=== PATIENT | female | born 1965 | race African-American/Black ===

== ENCOUNTER 2017-09-05 16:17 | Inpatient (IN) | payer MEDICAID ==
[~2017-09-05] VITALS: Ht 160 cm; Wt 125.9 kg
[2017-09-05 16:31] VITALS: O2SAT 97
[2017-09-05 16:33] VITALS: PULSE 85; RESP 18; TEMP 98.2; O2SAT 97
[2017-09-05] MEDS ORDERED: KEPP10002 PO (16:40)
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
[2017-09-05 16:45] LABS: AUTOMATED NEUTROPHIL # 2.8 TH/MM3 (1.8-7.7); BASOPHIL % 0.3 % (0.0-2.0); EOSINOPHIL # 0.2 TH/MM3 (0-0.4); HEMATOCRIT 46.3 % (35.0-46.0); HEMOGLOBIN 15.2 GM/DL (11.6-15.3); LYMPH % 51.7 % (9.0-44.0); MEAN CELL VOLUME 92.2 FL (80.0-100.0); MEAN CORPUSCULAR HEMOGLOBIN 30.3 PG (27.0-34.0); MEAN CORPUSCULAR HGB CONC 32.9 % (32.0-36.0); MEAN PLATELET VOLUME 7.6 FL (7.0-11.0); MONO % 8.6 % (0.0-8.0); MONOCYTE # 0.7 TH/MM3 (0-0.9); NEUT % 36.4 % (16.0-70.0); PLATELET COUNT 265 TH/MM3 (150-450); RED BLOOD COUNT 5.02 MIL/MM3 (4.00-5.30); RED CELL DISTRIBUTION WIDTH 12.9 % (11.6-17.2); WHITE BLOOD COUNT 7.7 TH/MM3 (4.0-11.0)
[2017-09-05 17:02] LABS: ALBUMIN 4.1 GM/DL (3.4-5.0); ALT (GPT) 21 U/L (10-53); AST (GOT) 16 U/L (15-37); BICARBONATE 23.7 MEQ/L (21.0-32.0); BLOOD UREA NITROGEN 10 MG/DL (7-18); CALCIUM 8.7 MG/DL (8.5-10.1); CHLORIDE 105 MEQ/L (98-107); GLOMERULAR FILTRATION RATE 48 ML/MIN (>89); GLUCOSE,RANDOM 116 MG/DL (74-106); SODIUM (NA) 139 MEQ/L (136-145)
[2017-09-05 17:04] LABS: ALKALINE PHOSPHATASE 81 U/L (45-117); TOTAL BILIRUBIN ADULT 0.4 MG/DL (0.2-1.0); TOTAL PROTEIN 8.4 GM/DL (6.4-8.2)
--- NOTE | 2017-09-05 17:17 | RADRPT ---
EXAM DATE/TIME: 09/05/2017 16:50 [facility] COMPARISON: No previous studies available for comparison. INDICATIONS : Seizure. RADIATION DOSE: 66.34 CTDIvol (mGy) MEDICAL HISTORY : Seizures. SURGICAL HISTORY : None. ENCOUNTER: Initial ACUITY: 1 day PAIN SCALE: 0/10 LOCATION: cranial TECHNIQUE: Multiple contiguous axial images were obtained of the head. Using automated exposure control and adj ustment of the mA and/or kV according to patient size, radiation dose was kept as low as reasonably a chievable to obtain optimal diagnostic quality images. DICOM format image data is available electro nically for review and comparison. FINDINGS: CEREBRUM: Asymmetric atrophy and periventricular encephalomalacia changes in the right cerebral hemisphere invo lving the frontal, parietal and anterior temporal lobes. No evidence of midline shift, mass lesion, hemorrhage or acute infarction. No extra-axial fluid collections are seen. POSTERIOR FOSSA: The cerebellum and brainstem are intact. The 4th ventricle is midline. The cerebellopontine angle i s unremarkable. EXTRACRANIAL: The visualized portion of the orbits is intact. Small air-fluid level in the right maxillary antra. SKULL: The calvaria is intact. No evidence of skull fracture. CONCLUSION: 1. Asymmetric atrophic changes throughout the right frontal parietal and anterior temporal lobes. Per iventricular encephalomalacia changes predominately along the anterior body of the right lateral vent ricle. Findings are all chronic and could represent either prior trauma or vascular insult. 2. No acute intracranial process. 3. Mild sinusitis in the right maxillary antra with a small air-fluid level. Michael Patterson MD on September 05, 2017 at 17:07 Board Certified Radiologist. This report was verified electronically.
[2017-09-05] MEDS ORDERED: LORazepam 2 MG/ML VIAL ONE (17:31)
[2017-09-05] MEDS ORDERED: LORazepam 2 MG/ML VIAL IV PUSH ONE (17:45)
[2017-09-05] MEDS ORDERED: FOSPHENYTOIN SODIUM 500 MG PE/10 ML VIAL IM ONE (17:45)
[2017-09-05] MEDS ORDERED: FOSPHENYTOIN INJ 1,000 MGPE in SODIUM CHLORIDE 0.9% INJ 50 ML IV ONE (18:00)
[2017-09-05 18:11] VITALS: BP 165/90; PULSE 85; RESP 18; O2SAT 97
[2017-09-05 19:08] VITALS: BP 105/71; PULSE 71; RESP 18; O2SAT 100
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
[2017-09-05] MEDS ORDERED: RESP: ALBUTEROL 2.5 MG/IPRATROPIUM 0.5 MG NEB (PRN) INH (20:30)
[2017-09-05] MEDS ORDERED: BISACODYL 10 MG SUPP RECTAL PRN (20:30)
[2017-09-05] MEDS ORDERED: ACETAMINOPHEN 325 MG TAB PO PRN (20:30)
[2017-09-05] MEDS ORDERED: TEMAZEPAM 15 MG CAP PO PRN (20:30)
[2017-09-05] MEDS ORDERED: CHLORHEXIDINE GLUCONATE 2 % 1 PACK (2 CLOTHS) TOP PRN (20:30)
[2017-09-05] MEDS ORDERED: LACTULOSE SYRUP 20 GM/30 ML CUP PO PRN (20:30)
[2017-09-05] MEDS ORDERED: ONDANSETRON HCL 4 MG/2 ML VIAL IV PUSH PRN (20:30)
[2017-09-05] MEDS ORDERED: levETIRAcetam INJ 100 ML IV ONE (20:30)
[2017-09-05] MEDS ORDERED: SODIUM CHLORIDE 0.9% FLUSH 10 ML FLUSH IV FLUSH PRN (20:30)
[2017-09-05] MEDS ORDERED: MAGNESIUM HYDROXIDE SUSP 30 ML CUP PO PRN (20:30)
[2017-09-05] MEDS ORDERED: SENNOSIDES 8.6 MG TAB PO PRN (20:30)
[2017-09-05] MEDS ORDERED: MISCELLANEOUS NURSING INFORMATION XX SCH (20:30)
[2017-09-05] MEDS ORDERED: LORazepam 2 MG/ML VIAL IV PUSH PRN (20:30)
[2017-09-05] MEDS: DOCUSATE SODIUM 50 MG/SENNA 8.6 MG TAB PO SCH (21:00)
[2017-09-05] MEDS: levETIRAcetam 500 MG TAB PO SCH (21:16)
[2017-09-05] MEDS: SODIUM CHLORIDE 0.9% FLUSH 10 ML FLUSH IV FLUSH SCH (21:16)
[2017-09-05] MEDS: lamoTRIgine 100 MG TAB PO SCH (21:16)
[2017-09-05] MEDS: SODIUM CHLOR 0.9% 1000 ML INJ 1,000 ML IV SCH (21:36)
[2017-09-05 22:25] VITALS: BP 127/60; PULSE 68; RESP 18; TEMP 98; O2SAT 100
[2017-09-05] MEDS: CHLORHEXIDINE GLUCONATE 2 % 1 PACK (2 CLOTHS) TOP SCH (23:18)
--- NOTE | 2017-09-05 23:54 | EKG ---
Date Performed: 09/05/2017 Time Performed: 16:35:53 PTAGE: 51 years EKG: Sinus rhythm WITH OCCASIONAL VENTRICULAR PREMATURE COMPLEXES BORDERLINE ECG NO PREVIOUS TRACING DOCTOR: Dominic Rose Interpretating Date/Time 09/05/2017 23:52:37
[2017-09-06] VITALS (7 sets, daily range): BP systolic 103–130; BP diastolic 51–75; PULSE 61–76; RESP 16–18; TEMP 97.8–98.6; O2SAT 98–100
[2017-09-06] MEDS: SODIUM CHLOR 0.9% 1000 ML INJ 1,000 ML IV SCH ×3 (06:02→21:56)
[2017-09-06 07:23] LABS: AUTOMATED NEUTROPHIL # 3.5 TH/MM3 (1.8-7.7); BASOPHIL % 0.3 % (0.0-2.0); EOSINOPHIL # 0.1 TH/MM3 (0-0.4); EOSINOPHIL % 2.2 % (0.0-4.0); HEMATOCRIT 41.7 % (35.0-46.0); HEMOGLOBIN 13.9 GM/DL (11.6-15.3); LYMPH % 32.1 % (9.0-44.0); MEAN CELL VOLUME 91.6 FL (80.0-100.0); MEAN CORPUSCULAR HEMOGLOBIN 30.6 PG (27.0-34.0); MEAN CORPUSCULAR HGB CONC 33.4 % (32.0-36.0); MEAN PLATELET VOLUME 7.5 FL (7.0-11.0); MONO % 9.8 % (0.0-8.0); MONOCYTE # 0.6 TH/MM3 (0-0.9); NEUT % 55.6 % (16.0-70.0); PLATELET COUNT 245 TH/MM3 (150-450); RED BLOOD COUNT 4.55 MIL/MM3 (4.00-5.30); RED CELL DISTRIBUTION WIDTH 12.9 % (11.6-17.2); WHITE BLOOD COUNT 6.3 TH/MM3 (4.0-11.0)
[2017-09-06 08:01] LABS: ALBUMIN 3.3 GM/DL (3.4-5.0); ALKALINE PHOSPHATASE 74 U/L (45-117); ALT (GPT) 17 U/L (10-53); AST (GOT) 19 U/L (15-37); BICARBONATE 23.7 MEQ/L (21.0-32.0); BLOOD UREA NITROGEN 8 MG/DL (7-18); CALCIUM 8.4 MG/DL (8.5-10.1); CHLORIDE 107 MEQ/L (98-107); CREATININE 0.89 MG/DL (0.50-1.00); GLOMERULAR FILTRATION RATE 82 ML/MIN (>89); GLUCOSE,RANDOM 89 MG/DL (74-106); MAGNESIUM 1.9 MG/DL (1.5-2.5); PHOSPHORUS 2.9 MG/DL (2.5-4.9); SODIUM (NA) 138 MEQ/L (136-145); TOTAL BILIRUBIN ADULT 0.5 MG/DL (0.2-1.0); TOTAL PROTEIN 7.2 GM/DL (6.4-8.2)
[2017-09-06] MEDS: levETIRAcetam 500 MG TAB PO SCH ×3 (08:18→17:34)
[2017-09-06] MEDS: DOCUSATE SODIUM 50 MG/SENNA 8.6 MG TAB PO SCH ×2 (08:18→21:00)
[2017-09-06] MEDS: lamoTRIgine 100 MG TAB PO SCH ×2 (08:18→21:55)
[2017-09-06] MEDS: SODIUM CHLORIDE 0.9% FLUSH 10 ML FLUSH IV FLUSH SCH ×2 (08:19→21:56)
--- NOTE | 2017-09-06 12:10 | MG ---
cc: Gus Rodriguez MD, PhD TEST NUMBER: [id number] TECHNIQUE: This is a 17-channel EEG. DESCRIPTION: The background rhythm reveals symmetrical alpha activity, frequency 8-10 Hz. Amplitude is 20-30 microvolts. During drowsiness, there is mild slowing in the theta range. There are no lateralizing features identified. There are no epileptiform features seen. Occasional muscle artifact identified. Photic is normal. INTERPRETATION: Normal EEG. There is some sleep activity as well during the tracing which appears to be normal as well. Gus Rodriguez MD, PhD KEY/SB , 11:58 AM , 12:09 PM
[2017-09-06] MEDS ORDERED: LORATADINE 10 MG TAB PO ONE (13:30)
[2017-09-06] MEDS ORDERED: diphenhydrAMINE HCL 25 MG CAP PO PRN (13:30)
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
[2017-09-06] MEDS ORDERED: GADODIAMIDE PF 287 MG/ML 5 ML VIAL (for RAD MRI) IVCONTRAST ONE (14:44)
--- NOTE | 2017-09-06 15:12 | RADRPT ---
EXAM DATE/TIME: 09/06/2017 14:24 [facility] COMPARISON: CT BRAIN W/O CONTRAST, September 05, 2017, 16:50. INDICATIONS : Epilepsy. Seizure. Abnormal head CT demonstrating chronic changes in the right frontal lobe. CONTRAST: 22 cc Omniscan (gadodiamide) IV MEDICAL HISTORY : Seizures. HIV. SURGICAL HISTORY : None. ENCOUNTER: Initial ACUITY: 2 day PAIN SCORE: 3/10 LOCATION: Bilateral cranial TECHNIQUE: Multiplanar, multisequence MRI of the brain was performed both prior to and following the administrat ion of paramagnetic contrast. FINDINGS: CEREBRUM: The ventricles are normal for age. No evidence of midline shift, mass lesion, hemorrhage or acute in farction. Focal encephalomalacia is again noted involving the right frontal lobe with gliosis. No ext raaxial fluid collections are seen. The pituitary gland and suprasellar cistern are normal in config uration. WHITE MATTER: No significant signal abnormalities are seen in the white matter. POSTERIOR FOSSA: The cerebellum and brainstem are intact. The 4th ventricle is midline. The cerebellopontine angle is unremarkable. The cerebellar tonsils are normal in position. DIFFUSION IMAGING: No focal areas of restricted diffusion are seen. No evidence of acute infarction. EXTRACRANIAL: The visualized portions of the orbits are unremarkable. A small air-fluid level is again noted in the right maxillary sinus. There is mild noted in the paranasal sinuses. POST-CONTRAST: No abnormal areas of parenchymal or dural enhancement. No evidence of blood-brain barrier breakdown. CONCLUSION: 1. Focal encephalomalacia involving the right frontal lobe with gliosis. There is no abnormal enhance ment. This likely is due to remote trauma or infarction. 2. No acute hemorrhage, mass or evidence of infarction. 3. Small air-fluid level again noted in the right maxillary sinus with mild mucosal thickening of par anasal sinuses. Bill Castro MD on September 06, 2017 at 15:06 Board Certified Radiologist. This report was verified electronically.
--- NOTE | 2017-09-06 15:37 | MB ---
cc: Gus Rodriguez MD, PhD DATE: 09/06/2017 REASON FOR CONSULTATION: Seizures. HISTORY OF PRESENT ILLNESS: This is a 51-year-old woman who has a long history of seizure disorder for which she normally takes Lamictal 250 mg b.i.d. and Keppra 1000 mg b.i.d. Yesterday she had several seizures in a row. The patient was at [employer] when she had a seizure. EMS was called. When they got there, she was having another seizure, had a third seizure en route controlled with 2 mg of IV Versed. She has had no recurrent seizures since then. Denies any noncompliance with medications. PAST MEDICAL HISTORY: Seizure disorder. MEDICATIONS: 1. Keppra 1000 mg b.i.d. 2. Lamictal, she states 250 mg b.i.d. According to the chart; however, she is on 100 mg b.i.d. PHYSICAL EXAMINATION: VITAL SIGNS: Blood pressure is 118/70, pulse 64, respirations 18, temperature 97.9 degrees. NEUROLOGICAL EXAMINATION: Higher functions are normal. Cranial nerves intact. Motor Exam: 5/5 strength in all groups. Reflexes symmetric. IMAGING STUDIES: MRI of the brain shows encephalomalacia right frontal lobe with gliosis due to remote trauma or infarction, no acute change present. Her EEG is normal. IMPRESSION: Generalized seizure. RECOMMENDATION: Increase Keppra to 1000 mg t.i.d. Continue Lamictal at her preadmission dose, which she states is 250 mg b.i.d. I would recommend observing in the hospital overnight. If stable, could be discharged tomorrow. No driving for at least 6 months. Gus Rodriguez MD, PhD KEY/DORY , 03:25 PM , 03:37 PM
[2017-09-06] MEDS ORDERED: PILL SPLITTER OTHER PRN (15:45)
[2017-09-07] VITALS: BP 110/72; PULSE 69; RESP 18; TEMP 98.3; O2SAT 98
[2017-09-07 00:30] VITALS: PULSE 65
[2017-09-07 04:00] VITALS: BP 123/64; PULSE 63; RESP 18; TEMP 97.7; O2SAT 100
[2017-09-07] MEDS: CHLORHEXIDINE GLUCONATE 2 % 1 PACK (2 CLOTHS) TOP SCH (04:00)
[2017-09-07] MEDS: SODIUM CHLOR 0.9% 1000 ML INJ 1,000 ML IV SCH (04:18)
[2017-09-07 07:46] VITALS: BP 128/72; PULSE 61; RESP 20; TEMP 98; O2SAT 100
[2017-09-07] MEDS ORDERED: LORATADINE 10 MG TAB PO SCH (09:00)
[2017-09-07] MEDS: SODIUM CHLORIDE 0.9% FLUSH 10 ML FLUSH IV FLUSH SCH (09:00)
[2017-09-07] MEDS: DOCUSATE SODIUM 50 MG/SENNA 8.6 MG TAB PO SCH (09:36)
[2017-09-07] MEDS: levETIRAcetam 500 MG TAB PO SCH (09:36)
[2017-09-07] MEDS: lamoTRIgine 100 MG TAB PO SCH (09:36)
[2017-09-07] MEDS ORDERED: KEPP10002 PO (11:32)
[2017-09-07] MEDS ORDERED: LAMO100 PO (11:32)
[2017-09-07 11:33] VITALS: BP 115/60; PULSE 63; RESP 20; TEMP 97.9; O2SAT 100
== END 2017-09-07 17:26 | disposition home or self-care (01) | DRG 100 ==
LOC: NEPC 16:17 → NEDA 18:15 → N05B 21:56
PROVIDERS: ADMIT Hospitalist; ATTEND Hospitalist
DX: G40.411 Other generalized epilepsy and epileptic syndromes, intractable, with status epilepticus (principal); B20 Human immunodeficiency virus [HIV] disease; N17.9 Acute kidney failure, unspecified; Z68.42 Body mass index [BMI] 45.0-49.9, adult; G93.89 Other specified disorders of brain; E66.01 Morbid (severe) obesity due to excess calories; E86.0 Dehydration
CPT/HCPCS: 70450; 70553; 80053; 83735; 84100; 85025; 93005; 95819; 96374; 96375; A9579; J1953; J2060; J7030; Q2009